=== PATIENT | female | born 1950 | race Caucasian/White ===

== ENCOUNTER 2017-02-13 12:36 | Outpatient (CLI) | payer MEDICARE ==
--- NOTE | 2017-02-13 16:25 | MRI ---
MRI OF LUMBAR SPINE WITHOUT CONTRAST: Date: 02/13/17 COMPARISON: None. HISTORY: Low back pain radiating down left leg. TECHNIQUE: Multiplanar, multisequence MR imaging of the lumbar spine is provided without contrast. FINDINGS: The sagittal [facility] demonstrates no focal or osseous marrow edema. Assuming five lumbar-type ve rtebral bodies, the conus medullaris terminates at the T12-L1 level. T11-12: There is a right paracentral disc protrusion with associated osteophyte formation causing a mild degr ee of right lateral recess stenosis. No significant neural foraminal stenosis noted. T12-L1: Mild bilateral facet hypertrophy. There is disc space narrowing, disc desiccation, and minimal disc b ulge with no significant central canal or neural foraminal stenosis. L1-2: Mild bilateral facet hypertrophy. There is disc space narrowing, disc desiccation, and minimal disc b ulge with no associated central canal or neural foraminal stenosis. L2-3: Moderate bilateral facet hypertrophy present. No significant central canal or neural foraminal stenos is. L3-4: Moderate bilateral facet hypertrophy and hypertrophy of the ligamentum flavum. There is disc space na rrowing and disc desiccation with mild disc bulge and mild central canal stenosis. Mild bilateral luly ral foraminal stenosis. L4-5: Moderate bilateral facet hypertrophy and hypertrophy of ligamentum flavum with a mild degree of centr al canal stenosis in the transverse dimension. There is disc space narrowing, degenerative end plate change, and disc desiccation. There is mild bilateral neural foraminal stenosis. L5-S1: Disc space narrowing, disc desiccation, and mild disc bulge present with no significant central canal stenosis. There is mild bilateral facet hypertrophy and significant lateral osteophyte formation inv olving the L5-S1 disc interspace, left greater than right. There is associated bilateral mild neural foraminal stenosis, left greater than right. Imaged retroperitoneal structures demonstrate a vague area of slightly decreased signal on the T2-sammi ghted imaging within the medial aspect of the mid pole left kidney, significance uncertain. Recommend follow-up renal ultrasound. IMPRESSION: 1. Multilevel lumbar spine degenerative changes as detailed above. 2. Faint area of decreased signal on T2-weighted imaging within the medial aspect of the left renal mid pole. In order to exclude a renal lesion, a follow-up renal ultrasound is advised. CODE T. POS: L[facility]
== END 2017-02-13 12:37 | disposition home or self-care (01) ==
LOC: TBSIIMAG 12:36
PROVIDERS: ATTEND Student in an Organized Health Care Education/Training Program
DX: M47.26 Other spondylosis with radiculopathy, lumbar region (principal); M79.605 Pain in left leg
CPT/HCPCS: 72148

== ENCOUNTER 2017-03-07 09:44 | Emergency (ER) | payer MEDICARE | END 2017-03-07 10:26 | disposition home or self-care (01) | LOC: SCSER 09:44 | DX: J30.9 Allergic rhinitis, unspecified (principal); E11.9 Type 2 diabetes mellitus without complications; I10 Essential (primary) hypertension; Z79.84 Long term (current) use of oral hypoglycemic drugs; Z79.899 Other long term (current) drug therapy | CPT/HCPCS: 99283 ==

== ENCOUNTER 2017-09-11 09:18 | Emergency (ER) | payer MEDICARE ==
[2017-09-11] MEDS ORDERED: diphenhydrAMINE 25 MG CAP ONE (09:42)
[2017-09-11] MEDS ORDERED: Ketorolac Tromethamine 60 MG/2 ML VIAL ONE (09:42)
[2017-09-11] MEDS ORDERED: Diazepam 2.5 MG GEL ONE (09:42)
[2017-09-11] MEDS ORDERED: Diazepam 5 MG TAB ONE (09:44)
[2017-09-11] MEDS ORDERED: diphenhydrAMINE 50 MG/ML VIAL ONE (09:45)
== END 2017-09-11 10:35 | disposition home or self-care (01) ==
LOC: SCSER 09:18
DX: M62.838 Other muscle spasm (principal); E11.9 Type 2 diabetes mellitus without complications; I10 Essential (primary) hypertension; E78.00 Pure hypercholesterolemia, unspecified; Z79.899 Other long term (current) drug therapy; Z79.84 Long term (current) use of oral hypoglycemic drugs
CPT/HCPCS: 96372; J1200; J1885

== ENCOUNTER 2017-09-14 11:07 | Emergency (ER) | payer MEDICARE ==
[2017-09-14] MEDS ORDERED: Lidocaine 1% PF 5 ML VIAL ONE (11:39)
[2017-09-14] MEDS ORDERED: Bacitracin Zinc 1 Packet ONE (12:46)
--- NOTE | 2017-09-14 13:25 | RAD ---
FOUR VIEWS RIGHT KNEE: Date: 09-14-17 Provided Clinical History: Right knee pain status post fall. FINDINGS: There is prominent prepatellar soft tissue swelling. There is no evidence for fracture or other acute osseous abnormality. Degenerative changes are seen. If there is persistent clinical concern, conserv ative management and follow up imaging advised. IMPRESSION: As above. POS: OFF
--- NOTE | 2017-09-14 13:25 | RAD ---
THORACIC SPINE RADIOGRAPHS THREE VIEWS: 09/14/2017 PROVIDED CLINICAL HISTORY: Back pain, status post injury. FINDINGS: Thoracic alignment appears normal. Vertebral body heights appear preserved. Pedicles appear intact. Multilevel thoracic disk degenerative changes are seen. IMPRESSION: No evidence for an acute osseous abnormality. If there is persistent clinical concern, conservative management and follow-up imaging advised. POS: OFF
--- NOTE | 2017-09-14 13:27 | RAD ---
LUMBAR SPINE 3 VIEWS: HISTORY: Pain. Injury. COMPARISON: None. FINDINGS: Five lumbar-type vertebral bodies. There is vacuum disk phenomenon at L4-L5. Moderate degenerative disk disease at L4-L5. Moderate to severe degenerative change at L5-S1. Lumbar spine vertebral body height appears to be maintained. No definite fracture. Limited evaluation of the distal thoracic s pine. Refer to separate thoracic spine report for further detail. IMPRESSION: No evidence of a lumbar spine fracture. POS: [facility]
== END 2017-09-14 12:52 | disposition home or self-care (01) ==
LOC: SCSER 11:07
DX: S01.311A Laceration without foreign body of right ear, initial encounter (principal); S80.01XA Contusion of right knee, initial encounter; S60.512A Abrasion of left hand, initial encounter; E11.9 Type 2 diabetes mellitus without complications; I10 Essential (primary) hypertension; E78.00 Pure hypercholesterolemia, unspecified; Z79.84 Long term (current) use of oral hypoglycemic drugs; Z79.899 Other long term (current) drug therapy; W06.XXXA Fall from bed, initial encounter
CPT/HCPCS: 12001; 72072; 72100; J2001

== ENCOUNTER 2017-09-18 14:25 | Emergency (ER) | payer MEDICARE ==
--- NOTE | 2017-09-18 15:59 | RAD ---
FOUR VIEWS OF THE RIGHT KNEE: DATE: 09/18/17. COMPARISON: 09/14/17. HISTORY: Knee injury, pain. FINDINGS: There is moderate medial and lateral compartment narrowing with associated osteophyte formation, most prominent laterally. There is prominent soft tissue swelling anterior to the patella and expected location of the patellar tendon. Probable small knee joint effusion. Patellofemoral joint space narrowing and osteophyte fo rmation noted with no displaced fracture or evidence of dislocation. IMPRESSION: Prominent prepatellar soft tissue swelling. Multicompartment degenerative joint disease with no disp laced fracture or evidence of dislocation. POS: [facility]
== END 2017-09-18 16:00 | disposition home or self-care (01) ==
LOC: SCSER 14:25
DX: S80.211A Abrasion, right knee, initial encounter (principal); M25.461 Effusion, right knee; E11.9 Type 2 diabetes mellitus without complications; I10 Essential (primary) hypertension; E78.00 Pure hypercholesterolemia, unspecified; Z79.84 Long term (current) use of oral hypoglycemic drugs; Z79.899 Other long term (current) drug therapy; W18.30XA Fall on same level, unspecified, initial encounter

== ENCOUNTER 2017-09-21 07:16 | Emergency (ER) | payer MEDICARE | END 2017-09-21 07:59 | disposition home or self-care (01) | LOC: SCSER 07:16 | DX: S01.311D Laceration without foreign body of right ear, subsequent encounter (principal); E11.9 Type 2 diabetes mellitus without complications; I10 Essential (primary) hypertension; E78.00 Pure hypercholesterolemia, unspecified; Z79.899 Other long term (current) drug therapy; Z79.84 Long term (current) use of oral hypoglycemic drugs; X58.XXXD Exposure to other specified factors, subsequent encounter ==

== ENCOUNTER 2018-03-19 10:23 | Emergency (ER) | payer MEDICARE | END 2018-03-19 11:00 | disposition home or self-care (01) | LOC: SCSER 10:23 | DX: J06.9 Acute upper respiratory infection, unspecified (principal); I10 Essential (primary) hypertension; E78.00 Pure hypercholesterolemia, unspecified; E11.9 Type 2 diabetes mellitus without complications; Z79.84 Long term (current) use of oral hypoglycemic drugs; Z79.891 Long term (current) use of opiate analgesic; Z79.899 Other long term (current) drug therapy | CPT/HCPCS: 99283 ==

== ENCOUNTER 2020-09-25 10:08 | Outpatient (CLI) | payer MEDICARE | END 2020-09-25 10:09 | disposition home or self-care (01) | LOC: SCSMRI 10:08 | PROVIDERS: ATTEND Family Medicine | DX: S46.212A Strain of muscle, fascia and tendon of other parts of biceps, left arm, initial encounter (principal); M75.102 Unspecified rotator cuff tear or rupture of left shoulder, not specified as traumatic ==

== ENCOUNTER 2021-04-15 11:50 | Outpatient (CLI) | payer MEDICARE | END 2021-04-15 11:51 | disposition home or self-care (01) | LOC: SCSRAD 11:50 | PROVIDERS: ATTEND Family Medicine | DX: M47.26 Other spondylosis with radiculopathy, lumbar region (principal); G95.9 Disease of spinal cord, unspecified | CPT/HCPCS: 72100 ==

== ENCOUNTER 2021-04-21 08:03 | Outpatient (CLI) | payer MEDICARE | END 2021-04-21 08:04 | disposition home or self-care (01) | LOC: SCSMRI 08:03 | PROVIDERS: ATTEND Family Medicine | DX: M47.26 Other spondylosis with radiculopathy, lumbar region (principal); G95.9 Disease of spinal cord, unspecified; M48.061 Spinal stenosis, lumbar region without neurogenic claudication | CPT/HCPCS: 72148 ==

== ENCOUNTER 2021-06-10 09:02 | Outpatient (CLI) | payer MEDICARE | END 2021-06-10 09:03 | disposition home or self-care (01) | LOC: SCSMRI 09:02 | PROVIDERS: ATTEND Neurological Surgery | DX: M25.562 Pain in left knee (principal); S83.282A Other tear of lateral meniscus, current injury, left knee, initial encounter; M17.12 Unilateral primary osteoarthritis, left knee; M71.22 Synovial cyst of popliteal space [Baker], left knee; M25.462 Effusion, left knee ==

== ENCOUNTER 2023-12-06 07:18 | Outpatient (CLI) | payer MEDICARE | END 2023-12-06 07:19 | disposition home or self-care (01) | LOC: SCSRAD 07:18 | PROVIDERS: ATTEND Family Medicine | DX: M25.531 Pain in right wrist (principal); M19.031 Primary osteoarthritis, right wrist ==